=== PATIENT | male | born 1945 | race Caucasian/White ===

== ENCOUNTER 2017-01-12 08:56 | Day surgery (SDC) | payer OTHER ==
[~2017-01-12] VITALS: Ht 188.1 cm; Wt 118.1 kg
[~2017-01-12 08:56] MED LIST: BETAPACE 120MG120 MG; BETAPACE 120MG120 MG PO; CEPHALEXIN500 M1 PO; COUMADIN1 MG PO; FERREX 150150 MG; FIBER; FISH OIL 500 M1 EAC1 PO; FLAX OIL1000 MG; FOLIC ACID0.4 MG; GLUCOSAMINE & C1 CA1 PO; LOVENOX 100100 MG/ML SQ; NORCO 325 MG-51 TAB PO; PRADAXA75 MG; PROTONIX 40MG T40 MG PO; SUPER B COMPLEX; TYLENOL 500MG500 MG PO; VITAMIN C500 MG; WARFARIN4 MG PO; ZOCOR 40MG40 MG PO; [UNRECOGNIZED DRUG - OTHER]
[2017-01-12 09:40] LABS: HEMATOCRIT 46.1 % (42.0-52.0); HEMOGLOBIN 16.2 g/dl (13.5-18.0); MEAN CELL VOLUME 94 fl (80.0-100.0); MEAN CORPUSCULAR HEMOGLOBIN 33 pg (27.0-31.0); MEAN CORPUSCULAR HGB CONC 35 g/dl (33.0-37.0); MEAN PLATELET VOLUME 10.1 fl (7.4-10.4); PLATELET COUNT 210 K/mm3 (130-400); RED BLOOD COUNT 4.92 M/mm3 (4.20-5.60); REDCELL DISTRIBUTION WIDTH-CV 12.7 % (11.5-14.5); WHITE BLOOD COUNT 7.4 K/mm3 (4.8-10.8)
[2017-01-12 09:43] LABS: INR 1.3 (0.8-3.0); PROTHROMBIN TIME 14.4 SECONDS (9.7-12.8)
[2017-01-12 09:55] VITALS: BP 140/91; PULSE 101
[2017-01-12] MEDS ORDERED: CORDARONE200 MG/TAB PO (09:56)
[2017-01-12] MEDS ORDERED: XARELTO20 MG PO (09:57)
[2017-01-12] MEDS ORDERED: B-12 500 MCG PO (09:57)
[2017-01-12] MEDS ORDERED: ICAPS AREDS SO1 EACH PO (09:58)
[2017-01-12] MEDS ORDERED: COLESTID 1GM1 G PO (09:58)
[2017-01-12] MEDS ORDERED: TIMOPTIC 0.25%-10 OU (09:59)
[2017-01-12] MEDS ORDERED: TRAVATAN Z 2.52.5 ML OS (09:59)
[2017-01-12 10:01] LABS: CALCIUM 8.8 mg/dL (8.4-10.2); CREATININE, serum 0.85 mg/dL (0.66-1.25)
[2017-01-12 10:02] VITALS: BP 138/88; PULSE 70; TEMP 98
[2017-01-12 10:15] VITALS: BP 117/73; PULSE 59
[2017-01-12 10:27] VITALS: BP 116/71; PULSE 58
[2017-01-12 10:40] VITALS: BP 130/86; PULSE 57
[2017-01-12 10:58] VITALS: BP 130/73; PULSE 56
== END 2017-01-12 11:35 | disposition home or self-care (01) ==
LOC: EUO 08:56 → COL.CAR 09:00 → EUO 11:35
PROVIDERS: Internal Medicine Cardiovascular Disease
DX: I48.91 Unspecified atrial fibrillation (principal)
CPT/HCPCS: J2704; J7120

== ENCOUNTER → 2017-01-21 | Outpatient (REF) ==
[~2017-01-21] MED LIST changes: +B-12 500 MCG PO; +COLESTID 1GM1 G PO; +CORDARONE200 MG/TAB PO; +ICAPS AREDS SO1 EACH PO; +TIMOPTIC 0.25%-10 OU; +TRAVATAN Z 2.52.5 ML OS; +XARELTO20 MG PO
== END ==
LOC: ZLAB.WCH 18:34
DX: Z01.89 Encounter for other specified special examinations (principal)

== ENCOUNTER → 2018-11-25 | Outpatient (REF) ==
[~2018-11-25] MED LIST changes: +COSOPT 2%-0.5%10 ML OU; +GLUCOSAMIN 500 PO
[2018-11-25 18:00] LABS: PSA-TOTAL 0.63 ng/mL (0-4)
[2018-11-25 18:01] LABS: THYROID STIMULATING HORMONE 2.25 uIU/mL (0.465-4.680)
== END ==
LOC: ZLAB.WCH 17:11
PROVIDERS: Internal Medicine
DX: Z01.89 Encounter for other specified special examinations (principal)
CPT/HCPCS: G0103

== ENCOUNTER 2021-11-13 08:49 | Day surgery (SDC) | payer MEDICARE, BC ==
[2021-11-13] VITALS (7 sets, daily range): BP systolic 123–157; BP diastolic 57–82; PULSE 54–59; TEMP 98.2
[~2021-11-13] VITALS: Ht 188 cm; Wt 111.0 kg
[2021-11-13] MEDS ORDERED: NORCO 325 MG-51 TAB PO (10:46)
--- NOTE | 2021-11-13 12:38 | NUR ---
Patient returns to room 5 per cart from PACU accompanied by Jacqui RN and is awake and alert. IV fluids infusing and site is free of redness. Exofin skin glue with wound edges well approximated. Denies pain or nausea. Spouse in room. Call light in reach and siderails up x2.
--- NOTE | 2021-11-13 12:53 | NUR ---
Drinking Pepsi and eating muffin. Continues to deny pain or nausea.
--- NOTE | 2021-11-13 13:08 | NUR ---
Drinking second Pepsi. Tolerated muffin well.
--- NOTE | 2021-11-13 13:23 | NUR ---
Resting and continues to deny pain or nausea.
--- NOTE | 2021-11-13 13:38 | NUR ---
Continues to rest. IV to INT and assisted up to the bathroom. Gait steady. Patient voids and returns to room.
--- NOTE | 2021-11-13 13:47 | NUR ---
Returns to room and INT discontinued. Site is free of redness or swelling. Patient dresses self.
--- NOTE | 2021-11-13 14:17 | NUR ---
Dismissal instructions given and voices understanding of home cares.
--- NOTE | 2021-11-13 14:23 | NUR ---
Patient dismissed to home driven by spouse and taken to the vehicle with dismissal instructions in hand.
== END 2021-11-13 14:23 | disposition home or self-care (01) ==
LOC: SDCO 08:49
DX: K40.90 Unilateral inguinal hernia, without obstruction or gangrene, not specified as recurrent (principal); E66.9 Obesity, unspecified; Z68.29 Body mass index [BMI] 29.0-29.9, adult
CPT/HCPCS: C1781; J0690; J1100; J1885; J2405; J2704; J3010; J7120